=== PATIENT | male | born 1990 | race Caucasian/White ===

== ENCOUNTER 2023-09-28 12:23 | Emergency (ER) | payer SELFPAY ==
[~2023-09-28] VITALS: Ht 185.4 cm; Wt 95.3 kg
[2023-09-28] MEDS ORDERED: IBUPROFEN 200 MG TAB PO ONE (12:45)
[2023-09-28] MEDS ORDERED: NAPROSYN500 MG PO (12:54)
[2023-09-28] MEDS ORDERED: TYLENOL325 MG PO (12:54)
[2023-09-28 13:30] VITALS: O2SAT 100
== END 2023-09-28 13:30 | disposition home or self-care (01) ==
LOC: FSED 12:25
DX: S93.491A Sprain of other ligament of right ankle, initial encounter (principal); X50.1XXA Overexertion from prolonged static or awkward postures, initial encounter; Y93.01 Activity, walking, marching and hiking; Y92.89 Other specified places as the place of occurrence of the external cause
CPT/HCPCS: 99283